=== PATIENT | male | born 1975 | race Caucasian/White ===

== ENCOUNTER 2020-12-14 07:50 | Emergency (ER) | payer BC ==
[~2020-12-14] VITALS: Ht 193 cm; Wt 111.0 kg
[2020-12-14 07:55] VITALS: BP 152/99
--- NOTE | 2020-12-14 08:28 | RAD ---
XR CHEST 2V History: Reason: cough / Spl. Instructions: / History: Comparison: None. Findings: Multifocal ill-defined opacities bilaterally. No pleural effusion. No pneumothorax. Normal heart size . Impression: 1. Multifocal ill-defined opacities bilaterally, concerning for pneumonia including viral pneumonia. Electronically signed by: Juan Espinoza DO (12/14/2020 8:26 AM) [id number]
[2020-12-14] MEDS ORDERED: PRED50TA PO (08:41)
[2020-12-14] MEDS ORDERED: ALBU2.5V8 IH (08:41)
[2020-12-14] MEDS ORDERED: DOXY-167 PO (08:41)
--- NOTE | 2020-12-14 08:41 | PHYS DOC ---
Past History Past Surgical History: No Surgical History General Adult EDM: Chief Complaint: COUGH HPI: HPI: Patient is a 45-year-old male coming in for continued cough that is occasionally productive. Patient was diagnosed with Covid 11 days ago. Has been taking NyQuil, naproxen, and Robitussin. Denies any recent fevers. No GI complaints. Has not had his Covid vaccine. Says son was diagnosed with pneumonia after he had Covid around the same time. Denies any past medical history or tobacco use Review of Systems: Review of Systems: All other systems within normal limits except for as noted in the HPI Allergies: Allergies: Allergies Coded Allergies Type Severity Reaction Last Updated Verified No Known Drug Allergies 12/14/20 No Physical Exam: PE: Constitutional: Well developed, well nourished, no acute distress, non-toxic appearance. [] HENT: Normocephalic, atraumatic, bilateral external ears normal, nose normal. [] Eyes: PERRLA, conjunctiva normal, no discharge. [] Neck: No rigidity, supple, no stridor. [] Cardiovascular: Regular rate and rhythm, brisk cap refill [] Lungs & Thorax: Non labored symmetric respirations, no tachypnea or respiratory distress [] Abdomen: Soft, nondistended. Skin: Warm, dry, no erythema, no rash. [] Back: Unremarkable Extremities: No deformities, range of motion grossly intact, no lower extremity edema [] Neurologic: Alert and oriented X 3, no focal deficits noted. [] Psychologic: Affect normal, judgement normal, mood normal. [] Current Patient Data: Vital Signs: Vital Signs Date Time Temp Pulse Resp B/P (MAP) Pulse Ox O2 Delivery O2 Flow Rate FiO2 12/14/20 07:55 98.1 81 18 152/99 95 Room Air EKG: EKG: [] Radiology/Procedures: Radiology/Procedures: [address] [id number] IMAGING REPORT Signed PATIENT: CLEMENTINA PAINTER ACCOUNT: [id number] : 11/05/1927 LOCATION: ER AGE: 89 SEX: F EXAM STATUS: PRE ER ORD. PHYSICIAN: NANCY ANDREWS MD REASON: SOB PROCEDURE: CHEST AP ONLY XR CHEST 1V INDICATION: SOB COMPARISON STUDY: 10/16/2005. FINDINGS: Lungs: Normal lung volume. Indistinct central vasculature. Pleura: No pleural effusion or pneumothorax. Heart and Mediastinum: Cardiomegaly. The great vessels of the thorax are normal. IMPRESSION: Indistinct central vasculature, which may reflect interstitial edema. Electronically signed by: Sushant Goff MD (12/14/2020 6:28 AM) [facility] DICTATED AND SIGNED BY: SUSHANT GOFF MD DATE: 12/14/20626 CC: NANCY ANDREWS MD; JONI FENG MD ~MTH0 0 Heart Score: C/O Chest Pain: No Risk Factors: Risk Factors: DM, Current or recent (<one month) smoker, HTN, HLP, family history of CAD, obesity. Risk Scores: Score 0 - 3: 2.5% MACE over next 6 weeks - Discharge Home Score 4 - 6: 20.3% MACE over next 6 weeks - Admit for Clinical Observation Score 7 - 10: 72.7% MACE over next 6 weeks - Early Invasive Strategies Course & Med Decision Making: Course & Med Decision Making Pertinent Labs and Imaging studies reviewed. (See chart for details) [] Dragon Disclaimer: Dragon Disclaimer: This electronic medical record was generated, in whole or in part, using a voice recognition dictation system. Departure Departure: Impression: Primary Impression: Atypical pneumonia Disposition: HOME / SELF CARE / HOMELESS Condition: STABLE Referrals: SUSHANT BURRIS MD (PCP) Patient Instructions: Pneumonia, Adult Scripts Albuterol Sulfate (PROAIR HFA INHALER) 8.5 Gm Hfa.aer.ad 2 PUFF IH PRN Q4-6HRS PRN for wheezing for 21 Days, #1 INHALER 0 Refills Prov: ANNETTE CLAY MD 12/14/20 Prednisone (PREDNISONE) 50 Mg Tablet 1 TAB PO DAILY for steroid for 5 Days, #5 TAB You received this medication in the emergency room today. You will starting your next dose tomorrow. Prov: ANNETTE CLAY MD 12/14/20 Doxycycline Monohydrate (Mondoxyne Nl) 100 Mg Capsule 1 CAP PO BID for antibiotic for 5 Days, #10 CAP 0 Refills Prov: ANNETTE CLAY MD 12/14/20 ANNETTE CLAY MD Dec 14, 2020 08:41
== END 2020-12-14 08:55 | disposition home or self-care (01) ==
LOC: ER 07:50
DX: J18.9 Pneumonia, unspecified organism (principal)
CPT/HCPCS: 71046; 99283